=== PATIENT | male | born 1975 | race Caucasian/White ===

== ENCOUNTER 2016-11-15 19:56 | Emergency (ER) | payer SELFPAY ==
[2016-11-15] MEDS ORDERED: NS 1,000 ML IV ONE (20:23)
[2016-11-15 20:30] LABS: % IMMATURE GRANULYOCYTES 0.3 % (0.0-1.1); ABSOLUTE IMMATURE GRANULOCYTES 0.03 10^3/uL (0.00-0.10); ADD DIFF? NO; ADD MORPH? NO; ADD SCAN? NO; ATYPICAL LYMPHOCYTE FLAG 20 (0-99); FRAGMENT RBC FLAG 0 (0-99); HEMATOCRIT 49.4 % (40.0-51.0); HEMOGLOBIN 17.8 g/dL (13.7-17.5); LEFT SHIFT FLG 0 (0-99); LIPEMIA HEMOLYSIS FLAG 90 (0-99); MEAN CELL HEMOGLOBIN 33.1 pg (27.9-34.1); MEAN CELL VOLUME 91.8 fL (81.5-99.8); MEAN PLATELET VOLUME 10.1 fL (8.7-11.7); PLATELET CLUMPS FLAG 0 (0-99); PLATELET COUNT 236 10^3/uL (150-400); RED BLOOD CELL COUNT 5.38 10^6/uL (4.40-6.38)
[2016-11-15] MEDS ORDERED: fentaNYL 100 MCG/2 ML INJ IVP ONE (20:30)
[2016-11-15] MEDS ORDERED: ONDANSETRON 4 MG/2 ML VIAL IVP ONE (20:33)
[2016-11-15 20:34] LABS: COLOR YELLOW; LEUKOCYTE ESTERASE,URINE TRACE (NEGATIVE); NITRITE,URINE NEGATIVE (NEGATIVE)
[2016-11-15 20:44] LABS: MUCUS TRACE /lpf (NONE-1+); RBC,URINE 50-182 /hpf (0-3); WBC,URINE 25-50 /hpf (0-3)
[2016-11-15 20:45] LABS: ANION GAP 11 mEq/L (8-16); CALCIUM 9.1 mg/dL (8.5-10.4); CARBON DIOXIDE 29 mEq/l (22-31); CHLORIDE 100 mEq/L (97-110); CREATININE 1.1 mg/dL (0.7-1.3); GLOMERULAR FILTRATION RATE > 60; GLUCOSE 128 mg/dL (70-100); SODIUM 140 mEq/L (134-144)
[2016-11-15] MEDS ORDERED: KETOROLAC 30 MG/1 ML SDV IVP ONE (20:45)
--- NOTE | 2016-11-15 20:48 | EDPHY ---
H & P Stated Complaint: LLQ abd pain, hematuria Time Seen by Provider: 11/15/16 20:05 HPI/ROS: CHIEF COMPLAINT: Left flank pain HISTORY OF PRESENT ILLNESS: The patient is a 41-year-old man who comes to the emergency department complaining of left flank pain off and on for the last 3 years. He states that he has passed multiple kidney stones in the past and has feels similar. He is not sure if he has passed stones or if he has been working on the same stone for 3 years. He does not have any history of aneurysm or kidney abnormalities. He does have a history of mild aortic stenosis that is not treated. He does not take any medications. He noticed flank pain this evening and intermittently tonight. No fever. He began having hematuria as well. He did take a Keflex he had left over this afternoon to see if that would help. REVIEW OF SYSTEMS: Constitutional: denies: chills, fever, recent illness, recent injury EENTM: denies: blurred vision, double vision, nose congestion Respiratory: denies: cough, shortness of breath Cardiac: denies: chest pain, irregular heart rate, lightheadedness, palpitations Gastrointestinal/Abdominal: See HPI, no diarrhea, no nausea, no vomiting Genitourinary: denies: dysuria, frequency, hematuria, pain Musculoskeletal: denies: joint pain, muscle pain Skin: denies: lesions, rash, jaundice, bruising Neurological: denies: headache, numbness, paresthesia, tingling, dizziness, weakness Hematologic/Lymphatic: denies: blood clots, easy bleeding, easy bruising Immunologic/allergic: denies: HIV/AIDS, transplant EXAM: GENERAL: Well-appearing, well-nourished and in no acute distress. HEAD: Atraumatic, normocephalic. EYES: Pupils equal round and reactive to light, extraocular movements intact, sclera anicteric, conjunctiva are normal. ENT: TMs normal, nares patent, oropharynx clear without exudates. Moist mucous membranes. NECK: Normal range of motion, supple without lymphadenopathy or JVD. LUNGS: Breath sounds clear to auscultation bilaterally and equal. No wheezes rales or rhonchi. HEART: Regular rate and rhythm without murmurs, rubs or gallops. ABDOMEN: Soft, nontender, normoactive bowel sounds. No guarding, no rebound. No masses appreciated. : Negative BACK: No CVA tenderness, no spinal tenderness, step-offs or deformities EXTREMITIES: Normal range of motion, no pitting or edema. No clubbing or cyanosis. NEUROLOGICAL: Cranial nerves II through XII grossly intact. Normal speech, normal gait. 5/5 strength, normal movement in all extremities, normal sensation PSYCH: Normal mood, normal affect. SKIN: Warm, dry, normal turgor, no visible rashes or lesions. Source: Patient Exam Limitations: No limitations - Personal History Current Tetanus/Diphtheria Vaccine: Yes Current Tetanus Diphtheria and Acellular Pertussis (TDAP): Yes Tetanus Vaccine Date: < 10 YEARS - Medical/Surgical History Hx Asthma: No Hx Chronic Respiratory Disease: No Hx Diabetes: No Hx Cardiac Disease: No Hx Renal Disease: No Hx Cirrhosis: No Hx Alcoholism: No Hx HIV/AIDS: No Hx Splenectomy or Spleen Trauma: No Other PMH: AORTIC STENOSIS, DJD, Kidney stones, - Family History Significant Family History: Hypertension - Social History Smoking Status: Current every day smoker Alcohol Use: Sober Drug Use: None Constitutional: Initial Vital Signs Temperature (C) 36.7 C 11/15/16 20:01 Heart Rate 98 11/15/16 20:01 Respiratory Rate 16 11/15/16 20:01 Blood Pressure 127/87 H 11/15/16 20:01 O2 Sat (%) 96 11/15/16 20:01 O2 Delivery Mode Room Air Allergies/Adverse Reactions: No Known Allergies Allergy (Unverified 11/15/16 20:00) Home Medications: Medication Instructions Recorded Cephalexin [Keflex (*)] 500 mg PO QID #28 cap 09/19/15 Hydrocodone/APAP 5/325 [[place] 1 - 2 tab PO Q6H PRN #20 tab 11/15/16 5/325 (*)] Ketorolac Tromethamine [Toradol] 10 mg PO Q6H #16 tab 11/15/16 Tamsulosin HCl [Flomax] 0.4 mg PO DAILY #10 cap 11/15/16 Medical Decision Making ED Course/Re-evaluation: 9:35 p.m. the patient is feeling completely better. He wishes to go home. I will have him follow up with Urology. We discussed indications for returning. Will also give him Flomax here. Differential Diagnosis: Partial list of the Differential diagnosis considered include but were not limited to; kidney stone, urinary tract infection and although unlikely based on the history and physical exam, I also considered hernia, STD, diarrhea, diverticulitis. I discussed these differential diagnoses and the plan with the patient as well as the usual and expected course. The patient understands that the diagnosis is provisional and that in medicine we are not always correct and that further workup is often warranted. Usual and customary warnings were given. All of the patient's questions were answered. The patient was instructed to return to the emergency department should the symptoms at all worsen or return, otherwise to followup with the physician as we discussed. - Data Points Laboratory Results: Laboratory Results 11/15/16 20:19 11/15/16 20:19 11/15/16 11/15/16 20:19 20:09 WBC 9.15 10^3/uL (3.80-9.50) RBC 5.38 10^6/uL (4.40-6.38) Hgb 17.8 H g/dL (13.7-17.5) Hct 49.4 % (40.0-51.0) MCV 91.8 fL (81.5-99.8) MCH 33.1 pg (27.9-34.1) MCHC 36.0 g/dL (32.4-36.7) RDW 13.0 % (11.5-15.2) Plt Count 236 10^3/uL (150-400) MPV 10.1 fL (8.7-11.7) Neut % (Auto) 69.7 % (39.3-74.2) Lymph % (Auto) 18.0 % (15.0-45.0) [facility] % (Auto) 8.2 % (4.5-13.0) Eos % (Auto) 3.3 % (0.6-7.6) Baso % (Auto) 0.5 % (0.3-1.7) Nucleat RBC Rel Count 0.0 % (0.0-0.2) Absolute Neuts (auto) 6.37 10^3/uL (1.70-6.50) Absolute Lymphs (auto) 1.65 10^3/uL (1.00-3.00) Absolute Monos (auto) 0.75 10^3/uL (0.30-0.80) Absolute Eos (auto) 0.30 10^3/uL (0.03-0.40) Absolute Basos (auto) 0.05 10^3/uL (0.02-0.10) Absolute Nucleated RBC 0.00 10^3/uL (0-0.01) Immature Gran % 0.3 % (0.0-1.1) Immature Gran # 0.03 10^3/uL (0.00-0.10) Sodium 140 mEq/L (134-144) Potassium 4.0 mEq/L (3.5-5.2) Chloride 100 mEq/L (97-110) Carbon Dioxide 29 mEq/l (22-31) Anion Gap 11 mEq/L (8-16) BUN 12 mg/dL (7-23) Creatinine 1.1 mg/dL (0.7-1.3) Estimated GFR > 60 Glucose 128 H mg/dL (70-100) Calcium 9.1 mg/dL (8.5-10.4) Urine Color YELLOW Urine Appearance MODERATELY TURBID Urine pH 5.0 (5.0-7.5) Ur Specific Neon 1.025 (1.002-1.030) Urine Protein 2+ H (NEGATIVE) Urine Ketones NEGATIVE (NEGATIVE) Urine Blood 3+ H (NEGATIVE) Urine Nitrate NEGATIVE (NEGATIVE) Urine Bilirubin NEGATIVE (NEGATIVE) Urine Urobilinogen NEGATIVE EU (0.2-1.0) Ur Leukocyte Esterase TRACE H (NEGATIVE) Urine RBC 50-182 H /hpf (0-3) Urine WBC 25-50 H /hpf (0-3) Ur Epithelial Cells TRACE /lpf (NONE-1+) Urine Mucus TRACE /lpf (NONE-1+) Ur Culture Indicated? INDICATED H (NI) Urine Glucose NEGATIVE (NEGATIVE) Medications Given: Discontinued Medications Acetaminophen/Hydrocodone Bitart ([place] 5/325mg Prepack#6) 1 btl TAKEHOME EDNOW ONE Stop: 11/15/16 21:39 Last Admin: 11/15/16 21:56 Dose: 1 btl Fentanyl (Sublimaze) 50 mcg IVP EDNOW ONE Stop: 11/15/16 20:31 Last Admin: 11/15/16 20:42 Dose: 50 mcg Sodium Chloride (Ns) 1,000 mls @ 0 mls/hr IV EDNOW ONE PRN Reason: Wide Open Stop: 11/15/16 20:24 Last Admin: 11/15/16 20:24 Dose: 1,000 mls Ketorolac Tromethamine (Toradol) 30 mg IVP EDNOW ONE Stop: 11/15/16 20:46 Last Admin: 11/15/16 20:51 Dose: 30 mg Ondansetron HCl (Zofran) 4 mg IVP EDNOW ONE Stop: 11/15/16 20:34 Last Admin: 11/15/16 20:42 Dose: 4 mg Tamsulosin HCl (Flomax) 0.4 mg PO EDNOW ONE Stop: 11/15/16 21:39 Last Admin: 11/15/16 21:47 Dose: Not Given Tamsulosin HCl (Flomax) 0.4 mg PO EDNOW ONE Stop: 11/15/16 21:43 Last Admin: 11/15/16 21:56 Dose: 0.4 mg Departure - Departure Disposition: Home, Routine, Self-Care Clinical Impression: Renal colic on left side Condition: Fair Instructions: Hydrocodone/Acetaminophen (By mouth), Kidney Stones (ED) Referrals: [place],. [Primary Care Provider] - As per Instructions Rudi Puckett MD [Medical Doctor] - As per Instructions Prescriptions: Tamsulosin HCl [Flomax] 0.4 mg PO DAILY #10 cap Hydrocodone/APAP 5/325 [[place] 5/325 (*)] 1 - 2 tab PO Q6H PRN #20 tab PRN Reason: Pain, Mild Ketorolac Tromethamine [Toradol] 10 mg PO Q6H #16 tab
[2016-11-15 21:28] VITALS: BP 122/106; PULSE 100; RESP 13; O2SAT 94
[2016-11-15] MEDS ORDERED: HYDROCOD/APAP 5/325 PREPACK#6 BTL TAKEHOME ONE (21:38)
[2016-11-15] MEDS ORDERED: TAMSULOSIN HCL 0.4 MG CAP PO ONE ×2 (21:38→21:42)
[2016-11-15 21:58] VITALS: TEMP 97.7
== END 2016-11-15 21:56 | disposition home or self-care (01) ==
DX: N23 Unspecified renal colic (principal); F17.200 Nicotine dependence, unspecified, uncomplicated
CPT/HCPCS: 96374; J1885; J2405; J3010

== ENCOUNTER 2016-11-27 04:37 | Emergency (ER) | payer SELFPAY ==
[2016-11-27 04:49] VITALS: BP 119/88; PULSE 97; RESP 18; TEMP 97.5; O2SAT 98
[2016-11-27] MEDS ORDERED: PROPARACAINE 0.5% 15 ML OPHT DROP ONE (04:51)
[2016-11-27] MEDS ORDERED: PROPARACAINE 0.5% 15 ML OPHT DROP OP ONE (04:56)
--- NOTE | 2016-11-27 05:15 | EDPHY ---
H & P Stated Complaint: RIGHT EYE DISCHARGE NAD ITCHY HPI/ROS: HPI CHIEF COMPLAINT: Left eye drainage, itchiness HISTORY OF PRESENT ILLNESS: This patient very pleasant 41-year-old male, denies any significant medical history except for kidney stones and tobacco use , presents to the emergency room with left eye and right eye discomfort. Patient tells me that around 10:00 p.m. last night he developed some discomfort his left eye he thought maybe got something in it however he noticed throughout the night it has been draining with yellow discharge especially pulling at the medial canthus. He denies fever he denies pain with extraocular movements. He tells me that he looked in the mirror in his conjunctiva looks injected he thinks he may have pinkeye. Patient also tells me that he has right eye started getting a little bit red he is concerned may have spread to his right eye. He does not wear contacts. Past Medical History: Kidney stones Past Surgical History: No significant surgical history Social History: Denies use of drugs alcohol, drugs or tobacco Family History: noncontributory ROS REVIEW OF SYSTEMS: A comprehensive 10 point review of systems is otherwise negative aside from elements mentioned in the history of present illness. Exam Constitutional triage nursing summary reviewed, vital signs reviewed, awake/ alert. Eyes bilateral conjunctiva is injected red worse on the left eye than the right. Right Eye: Conjunctival injection otherwise unremarkable no anterior chamber inflammation, no flare, extra movements intact, no evidence of corneal abrasion. Left eye: There is pooling of yellow drainage and discharge in the medial canthus, the conjunctiva is injected, extra movements intact, no corneal abrasion seen on uptake of fluorescein. Anterior chambers normal. Posterior exam without dilatation normal. HENT normal inspection, atraumatic, moist mucus membranes, no epistaxis, neck supple/ no meningismus, no raccoon eyes. Respiratory clear to auscultation bilaterally, normal breath sounds, no respiratory distress, no wheezing. Cardiovascular rate normal, regular rhythm, no murmur, no edema, distal pulses normal. Gastrointestinal soft, non-tender, no rebound, no guarding, normal bowel sounds, no distension, no pulsatile mass. Genitourinary no CVA tenderness. Musculoskeletal no midline vertebral tenderness, full range of motion, no calf swelling, no tenderness of extremities, no meningismus, good pulses, neurovascularly intact. Skin pink, warm, & dry, no rash, skin atraumatic. Neurologic awake, alert and oriented x 3, AAOx3, moves all 4 extremities equally, motor intact, sensory intact, CN II-XII intact, normal cerebellar, normal vision, normal speech. Psychiatric normal mood/affect. Heme/Lymph/Immune no lymphadenopathy. Differential Diagnosis: Includes but is not limited to in a particular order viral conjunctivitis, bacterial conjunctivitis, corneal abrasion, Foreign body Medical Decision Making: this patient's eye exam does not indicate he has a corneal abrasion or foreign body on either eye. He appears to have bilateral conjunctival injection, worse on the left side than right with drainage and crusting yellow discharge. Will place patient antibiotics understands to take ibuprofen for pain, use cool compresses. Needs to follow up with Ophthalmology. He understands follow-up Ophthalmology next 24-48 hours. Source: Patient - Personal History Current Tetanus/Diphtheria Vaccine: Yes Current Tetanus Diphtheria and Acellular Pertussis (TDAP): Yes Tetanus Vaccine Date: < 10 YEARS - Medical/Surgical History Hx Asthma: No Hx Chronic Respiratory Disease: No Hx Diabetes: No Hx Cardiac Disease: No Hx Renal Disease: No Hx Cirrhosis: No Hx Alcoholism: No Hx HIV/AIDS: No Hx Splenectomy or Spleen Trauma: No Other PMH: AORTIC STENOSIS, DJD, Kidney stones, - Social History Smoking Status: Current every day smoker Constitutional: Initial Vital Signs Temperature (C) 36.4 C 11/27/16 04:47 Heart Rate 97 11/27/16 04:47 Respiratory Rate 18 11/27/16 04:47 Blood Pressure 119/88 H 11/27/16 04:47 O2 Sat (%) 98 11/27/16 04:47 O2 Delivery Mode Room Air Allergies/Adverse Reactions: No Known Allergies Allergy (Unverified 11/27/16 04:49) Home Medications: Medication Instructions Recorded Ibuprofen [Motrin (*)] 800 mg PO Q6-8PRN #14 tab 11/27/16 Ofloxacin 0.3% [Ocuflox 0.3%] 2 drops OP QID #1 opht.btl 11/27/16 Medical Decision Making - Data Points Medications Given: Discontinued Medications Proparacaine HCl (Alcaine 0.5%) 2 drops OP EDNOW ONE Stop: 11/27/16 04:57 Last Admin: 11/27/16 04:57 Dose: 2 drops Departure - Departure Disposition: Home, Routine, Self-Care Clinical Impression: Conjunctivitis Qualifiers: Conjunctivitis type: acute Acute conjunctivitis type: bacterial Laterality: bilateral Qualifier Code: (H10.33) Unspecified acute conjunctivitis, bilateral Condition: Good Instructions: Conjunctivitis (ED) Additional Instructions: 1. Please follow up with Ophthalmology. 2. Return emergency room if he has any worsening symptoms questions or concerns. 3. Please take antibiotics as prescribed. 4. use cool compresses for your eye. 5. Take ibuprofen for pain. Referrals: [place],. [Primary Care Provider] - As per Instructions Nahun Vasquez MD [Medical Doctor] - As per Instructions Prescriptions: Ibuprofen [Motrin (*)] 800 mg PO Q6-8PRN #14 tab Ofloxacin 0.3% [Ocuflox 0.3%] 2 drops OP QID #1 opht.btl
== END 2016-11-27 05:41 | disposition home or self-care (01) ==
DX: H10.33 Unspecified acute conjunctivitis, bilateral (principal); F17.200 Nicotine dependence, unspecified, uncomplicated

== ENCOUNTER 2017-02-09 07:37 | Emergency (ER) | payer MEDICAID ==
[2017-02-09 07:43] VITALS: RESP 22
[2017-02-09] MEDS ORDERED: ONDANSETRON 4 MG/2 ML VIAL IVP ONE (08:08)
[2017-02-09] MEDS ORDERED: HYDROmorphONE/DILAUDID 1 MG/ML SYR IVP ONE (08:08)
[2017-02-09] MEDS ORDERED: NS 1,000 ML IV ONE (08:08)
[2017-02-09] MEDS ORDERED: HYDROmorphONE/DILAUDID 1 MG/ML SYR ONE (08:08)
--- NOTE | 2017-02-09 08:10 | EDPHY ---
H & P Stated Complaint: rlq abd pain Time Seen by Provider: 02/09/17 08:02 HPI/ROS: CHIEF COMPLAINT: Right lower quadrant pain HISTORY OF PRESENT ILLNESS: The patient is a 41-year-old man who comes to the emergency department complaining of severe right lower quadrant pain. He has a history of mild aortic stenosis that has not been treated, as well as kidney stones. He states that this does not feel similar to previous kidney stones because the pain is worse. His pain began suddenly at 4:00 a.m. this morning. He has a difficult time finding a comfortable position. He is not febrile. He has not been vomiting. No diarrhea. He has not been able to urinate. I saw him in November with similar symptoms. At that time he did not wish to have a CT scan. REVIEW OF SYSTEMS: Constitutional: denies: chills, fever, recent illness, recent injury EENTM: denies: blurred vision, double vision, nose congestion Respiratory: denies: cough, shortness of breath Cardiac: denies: chest pain, irregular heart rate, lightheadedness, palpitations Gastrointestinal/Abdominal: See HPI Genitourinary: See HPI Musculoskeletal: denies: joint pain, muscle pain Skin: denies: lesions, rash, jaundice, bruising Neurological: denies: headache, numbness, paresthesia, tingling, dizziness, weakness Hematologic/Lymphatic: denies: blood clots, easy bleeding, easy bruising Immunologic/allergic: denies: HIV/AIDS, transplant EXAM: GENERAL: Moderate distress, writhing in bed, moaning HEAD: Atraumatic, normocephalic. EYES: Pupils equal round and reactive to light, extraocular movements intact, sclera anicteric, conjunctiva are normal. ENT: TMs normal, nares patent, oropharynx clear without exudates. Moist mucous membranes. NECK: Normal range of motion, supple without lymphadenopathy or JVD. LUNGS: Breath sounds clear to auscultation bilaterally and equal. No wheezes rales or rhonchi. HEART: Regular rate and rhythm without murmurs, rubs or gallops. ABDOMEN: Soft, nontender, normoactive bowel sounds. No guarding, no rebound. No masses appreciated. BACK: No CVA tenderness, no spinal tenderness, step-offs or deformities EXTREMITIES: Normal range of motion, no pitting or edema. No clubbing or cyanosis. NEUROLOGICAL: Cranial nerves II through XII grossly intact. Normal speech, normal gait. 5/5 strength, normal movement in all extremities, normal sensation PSYCH: Normal mood, normal affect. SKIN: Warm, dry, normal turgor, no visible rashes or lesions. Source: Patient Exam Limitations: No limitations - Personal History Current Tetanus/Diphtheria Vaccine: Yes Tetanus Vaccine Date: < 10 YEARS - Medical/Surgical History Hx Asthma: No Hx Chronic Respiratory Disease: No Hx Diabetes: No Hx Cardiac Disease: No Hx Renal Disease: No Hx Cirrhosis: No Hx Alcoholism: No Hx HIV/AIDS: No Hx Splenectomy or Spleen Trauma: No Other PMH: AORTIC STENOSIS, DJD, Kidney stones, - Family History Significant Family History: No pertinent family hx - Social History Smoking Status: Current every day smoker Alcohol Use: Sober Drug Use: None Constitutional: Initial Vital Signs Temperature (C) 36.9 C 02/09/17 07:39 Heart Rate 96 02/09/17 07:39 Respiratory Rate 22 H 02/09/17 07:39 Blood Pressure 120/83 H 02/09/17 07:39 O2 Sat (%) 94 02/09/17 07:39 O2 Delivery Mode Room Air O2 (L/minute) 2 Allergies/Adverse Reactions: No Known Allergies Allergy (Verified 02/09/17 07:39) Home Medications: Medication Instructions Recorded Hydrocodone/APAP 5/325 [[place] 1 - 2 tab PO Q4H PRN #10 tab 02/09/17 5/325] Ketorolac Tromethamine [Toradol] 10 mg PO Q6H #16 tab 02/09/17 Ondansetron Odt [Zofran Odt 4 mg 4 mg PO Q4 PRN #20 tab 02/09/17 (RX)] Medical Decision Making - Diagnostics Imaging: Imaging Impressions Abdomen/Pelvis CT 02/09/17 09:16 Impression: 1. Right-sided obstructive uropathy secondary to a 9 x 13 x 9 mm right renal pelvic stone. 2. Punctate bilateral nephrolithiasis. 3. Constipation. Findings were discussed with MALIK BURDICK MD at 10:13 am, on 02/09/2017. Attention: This CT examination is specifically designed to evaluate patients who are clinically suspected of having acute obstructive uropathy. This examination does not use radiographic contrast, and as such, provides only a limited evaluation of the abdomen, pelvis, and retroperitoneum. If there is further clinical suspicion for pathological conditions other than obstructive uropathy, a complete CT evaluation of the abdomen and pelvis utilizing intravenous, oral, and rectal contrast should be considered. Results: CT scan of the abdomen and pelvis was obtained. The results of the study are large 9 x 13 mm stone in the right renal pelvis with possible ball valve affect. Minimal to mild obstruction. Appendix normal appearing, mild constipation. The study was read by Dr. Jimbo Poe. I viewed the images myself on the PACS system. ED Course/Re-evaluation: 10:35 p.m. we discussed the CT results. The patient is reassured. He is currently pain free. I will refer him to urology for lithotripsy. I will give him prescription for pain and nausea medication. He is happy with this plan and declines further workup or testing. Differential Diagnosis: Partial list of the Differential diagnosis considered include but were not limited to; kidney stone, appendicitis, obstruction, constipation, hernia and although unlikely based on the history and physical exam, I also considered urinary tract infection, acute coronary disease. I discussed these differential diagnoses and the plan with the patient as well as the usual and expected course. The patient understands that the diagnosis is provisional and that in medicine we are not always correct and that further workup is often warranted. Usual and customary warnings were given. All of the patient's questions were answered. The patient was instructed to return to the emergency department should the symptoms at all worsen or return, otherwise to followup with the physician as we discussed. - Data Points Laboratory Results: Laboratory Results 02/09/17 07:59 02/09/17 07:59 02/09/17 02/09/17 07:59 07:59 WBC 9.79 10^3/uL H 10^3/uL (3.80-9.50) RBC 5.53 10^6/uL 10^6/uL (4.40-6.38) Hgb 17.5 g/dL g/dL (13.7-17.5) Hct 49.5 % % (40.0-51.0) MCV 89.5 fL fL (81.5-99.8) MCH 31.6 pg pg (27.9-34.1) MCHC 35.4 g/dL g/dL (32.4-36.7) RDW 13.0 % % (11.5-15.2) Plt Count 276 10^3/uL 10^3/uL (150-400) MPV 10.5 fL fL (8.7-11.7) Neut % (Auto) 60.0 % % (39.3-74.2) Lymph % (Auto) 28.3 % % (15.0-45.0) [facility] % (Auto) 7.4 % % (4.5-13.0) Eos % (Auto) 3.4 % % (0.6-7.6) Baso % (Auto) 0.7 % % (0.3-1.7) Nucleat RBC Rel Count 0.0 % % (0.0-0.2) Absolute Neuts (auto) 5.88 10^3/uL 10^3/uL (1.70-6.50) Absolute Lymphs (auto) 2.77 10^3/uL 10^3/uL (1.00-3.00) Absolute Monos (auto) 0.72 10^3/uL 10^3/uL (0.30-0.80) Absolute Eos (auto) 0.33 10^3/uL 10^3/uL (0.03-0.40) Absolute Basos (auto) 0.07 10^3/uL 10^3/uL (0.02-0.10) Absolute Nucleated RBC 0.00 10^3/uL 10^3/uL (0-0.01) Immature Gran % 0.2 % % (0.0-1.1) Immature Gran # 0.02 10^3/uL 10^3/uL (0.00-0.10) Sodium 140 mEq/L mEq/L (134-144) Potassium 4.1 mEq/L mEq/L (3.5-5.2) Chloride 104 mEq/L mEq/L (97-110) Carbon Dioxide 25 mEq/l mEq/l (22-31) Anion Gap 11 mEq/L mEq/L (8-16) BUN 13 mg/dL mg/dL (7-23) Creatinine 1.1 mg/dL mg/dL (0.7-1.3) Estimated GFR > 60 Glucose 89 mg/dL mg/dL (70-100) Calcium 9.8 mg/dL mg/dL (8.5-10.4) Total Bilirubin 1.1 mg/dL mg/dL (0.1-1.4) Conjugated Bilirubin 0.5 mg/dL mg/dL (0.0-0.5) Unconjugated Bilirubin 0.6 mg/dL mg/dL (0.0-1.1) AST 31 IU/L IU/L (17-59) ALT 35 IU/L IU/L (21-72) Alkaline Phosphatase 104 IU/L IU/L (38-126) Total Protein 7.9 g/dL g/dL (6.3-8.2) Albumin 4.7 g/dL g/dL (3.5-5.0) Lipase 119.0 IU/L IU/L (23-300) Medications Given: Discontinued Medications Hydromorphone HCl (Dilaudid) 1 mg IVP EDNOW ONE Stop: 02/09/17 08:09 Last Admin: 02/09/17 08:16 Dose: 1 mg Sodium Chloride (Ns) 1,000 mls @ 0 mls/hr IV ONCE ONE PRN Reason: Wide Open Stop: 02/09/17 08:09 Last Admin: 02/09/17 08:16 Dose: 1,000 mls Ketorolac Tromethamine (Toradol) 30 mg IVP EDNOW ONE Stop: 02/09/17 08:42 Last Admin: 02/09/17 09:16 Dose: 30 mg Ondansetron HCl (Zofran) 4 mg IVP EDNOW ONE Stop: 02/09/17 08:09 Last Admin: 02/09/17 08:18 Dose: 4 mg Departure - Departure Disposition: Home, Routine, Self-Care Clinical Impression: Kidney stone on left side Condition: Fair Instructions: Kidney Stones (ED) Referrals: Rebel Chappell MD [Medical Doctor] - As per Instructions Stand Alone Forms: Work Excuse Prescriptions: Hydrocodone/APAP 5/325 [[place] 5/325] 1 - 2 tab PO Q4H PRN #10 tab PRN Reason: Pain, Moderate Ketorolac Tromethamine [Toradol] 10 mg PO Q6H #16 tab Ondansetron Odt [Zofran Odt 4 mg (RX)] 4 mg PO Q4 PRN #20 tab PRN Reason: Nausea & Vomiting
[2017-02-09 08:12] LABS: % IMMATURE GRANULYOCYTES 0.2 % (0.0-1.1); ABSOLUTE IMMATURE GRANULOCYTES 0.02 10^3/uL (0.00-0.10); ADD DIFF? NO; ADD MORPH? NO; ADD SCAN? NO; ATYPICAL LYMPHOCYTE FLAG 20 (0-99); FRAGMENT RBC FLAG 0 (0-99); HEMATOCRIT 49.5 % (40.0-51.0); HEMOGLOBIN 17.5 g/dL (13.7-17.5); LEFT SHIFT FLG 0 (0-99); LIPEMIA HEMOLYSIS FLAG 90 (0-99); MEAN CELL HEMOGLOBIN 31.6 pg (27.9-34.1); MEAN CELL HEMOGLOBIN CONCENTR. 35.4 g/dL (32.4-36.7); MEAN CELL VOLUME 89.5 fL (81.5-99.8); MEAN PLATELET VOLUME 10.5 fL (8.7-11.7); PLATELET CLUMPS FLAG 10 (0-99); PLATELET COUNT 276 10^3/uL (150-400); RED BLOOD CELL COUNT 5.53 10^6/uL (4.40-6.38)
[2017-02-09 08:38] LABS: ALANINE AMINOTRANSFERASE 35 IU/L (21-72); ALBUMIN 4.7 g/dL (3.5-5.0); ALKALINE PHOSPHATASE 104 IU/L (38-126); ANION GAP 11 mEq/L (8-16); ASPARTATE AMINOTRANSFERASE 31 IU/L (17-59); BILIRUBIN,TOTAL 1.1 mg/dL (0.1-1.4); BILIRUBIN-CONJUGATED 0.5 mg/dL (0.0-0.5); BILIRUBIN-UNCONJUGATED 0.6 mg/dL (0.0-1.1); CALCIUM 9.8 mg/dL (8.5-10.4); CARBON DIOXIDE 25 mEq/l (22-31); CHLORIDE 104 mEq/L (97-110); CREATININE 1.1 mg/dL (0.7-1.3); GLOMERULAR FILTRATION RATE > 60; GLUCOSE 89 mg/dL (70-100); POTASSIUM 4.1 mEq/L (3.5-5.2); SODIUM 140 mEq/L (134-144); TOTAL PROTEIN 7.9 g/dL (6.3-8.2)
[2017-02-09] MEDS ORDERED: KETOROLAC 30 MG/1 ML SDV IVP ONE (08:41)
[2017-02-09 11:18] VITALS: BP 130/87; PULSE 98; TEMP 98.1; O2SAT 100
== END 2017-02-09 11:18 | disposition home or self-care (01) ==
DX: N20.0 Calculus of kidney (principal); F17.200 Nicotine dependence, unspecified, uncomplicated
CPT/HCPCS: 96374; J1170; J1885; J2405

== ENCOUNTER → 2017-02-20 | Outpatient (CLI) | payer MEDICAID | LOC: FIMAGING 18:35 | PROVIDERS: ATTEND Urology | DX: N20.0 Calculus of kidney (principal) ==

== ENCOUNTER 2017-02-22 11:32 | Emergency (ER) | payer MEDICAID ==
--- NOTE | 2017-02-22 11:59 | EDPHY ---
H & P Time Seen by Provider: 02/22/17 11:38 HPI/ROS: CHIEF COMPLAINT: Right lower quadrant abdominal pain HISTORY OF PRESENT ILLNESS: 41-year-old male presents to the emergency department with right lower quadrant abdominal pain. The patient was diagnosed with a large 9 x 13 x 9 mm stone in the right renal pelvis last week. He has seen Dr. Rebel Chappell, urologist, and is planning on having likely lithotripsy in treatment. The patient's saw Dr. Chappell and has had his laboratory studies and his outpatient x-ray and presents to the emergency department now with persisting pain. He denies urinary symptoms. He denies blood in his urine. No fevers or chills. He has persisting right lower quadrant abdominal pain. Denies neck pain. Denies chest pain or difficulty breathing. Denies any reported trauma. REVIEW OF SYSTEMS: Constitutional: No fever, no chills. Eyes: No double or blurry vision. ENT: No sore throat. Respiratory: No cough, no shortness of breath. Cardiac: No chest pain. Gastrointestinal: Abdominal pain as above. No vomiting or diarrhea Genitourinary: No dysuria. Musculoskeletal: No neck or back pain. Skin: No rashes. Neurological: No headache. Past Medical/Surgical History: Kidney stone Social History: Single and lives in [place] Smoking Status: Current every day smoker Physical Exam: General Appearance: Alert, no distress. Afebrile. Eyes: Pupils equal and round. Extraocular motions are all intact. ENT: Mouth: Mucous membranes moist. Respiratory: No wheezing, rhonchi, or rales, lungs are clear to auscultation. Cardiovascular: Regular rate and rhythm. Gastrointestinal: Abdomen is soft and nontender. No masses, rebound or guarding noted. No CVA tenderness bilaterally. Neurological: Alert and oriented x 3, cranial nerves II through XII grossly intact Skin: Warm and dry, no rashes. Musculoskeletal: Nontender to palpate along the cervical, thoracic or lumbar spine. Neck is supple. Extremities: Full range of motion and no peripheral edema. Psychiatric: Patient is oriented X 3, there is no agitation. Constitutional: Initial Vital Signs Temperature (C) 36.4 C 02/22/17 11:35 Heart Rate 94 02/22/17 11:35 Respiratory Rate 18 02/22/17 11:35 Blood Pressure 119/79 02/22/17 11:35 O2 Sat (%) 96 02/22/17 11:35 O2 Delivery Mode Room Air Allergies/Adverse Reactions: No Known Allergies Allergy (Verified 02/22/17 11:34) Home Medications: Medication Instructions Recorded Hydrocodone/APAP 5/325 [[place] 1 - 2 tab PO Q4H PRN #10 tab 02/09/17 5/325] Ketorolac Tromethamine [Toradol] 10 mg PO Q6H #16 tab 02/09/17 Ondansetron Odt [Zofran Odt 4 mg 4 mg PO Q4 PRN #20 tab 02/09/17 (RX)] Cephalexin [Keflex] 500 mg PO QID #28 cap 02/22/17 Hydrocodone/APAP 5/325 [[place] 1 each PO Q4-6PRN PRN #15 tab 02/22/17 5/325 (*)] Tamsulosin HCl [Flomax] 0.4 mg PO DAILY #10 cap 02/22/17 Medical Decision Making ED Course/Re-evaluation: 41-year-old male presents to the emergency department with persisting right lower quadrant abdominal pain. The patient has a known 9 x 13 x 9 mm right renal pelvis stone. The patient had KUB x-ray done 2 days ago which shows the stone in the same place. He has a normal creatinine 1.1. I spoke with his urologist, Dr. Rebel Chappell who he saw last week. Dr. Chappell did not recommend additional Toradol since the patient ran out yesterday. He recommended starting the patient on Flomax, and hydrocodone. He will see him for lithotripsy this week. The patient is supposed to call to arrange for this appointment. The patient had a large amount of red blood cells which is expected given his large kidney stone, however he did have 15-25 white blood cells and trace bacteria. Urine cultures pending. The patient was started on Keflex prophylactically and will call for the results of the urine culture in 48 hours. Patient was instructed to return if he develops fever, vomiting, or if he felt worse in any way. He was comfortable with this plan. The patient did not want to be admitted to the hospital. He was requesting discharge home. Differential Diagnosis: Including but not limited to kidney stone, pyelonephritis, sepsis, urinary retention - Data Points Laboratory Results: Laboratory Results 02/22/17 11:45 02/22/17 11:45 02/22/17 02/22/17 02/22/17 12:15 11:45 11:45 WBC 8.35 10^3/uL 10^3/uL (3.80-9.50) RBC 5.56 10^6/uL 10^6/uL (4.40-6.38) Hgb 17.7 g/dL H g/dL (13.7-17.5) Hct 52.0 % H % (40.0-51.0) MCV 93.5 fL fL (81.5-99.8) MCH 31.8 pg pg (27.9-34.1) MCHC 34.0 g/dL g/dL (32.4-36.7) RDW 13.3 % % (11.5-15.2) Plt Count 239 10^3/uL 10^3/uL (150-400) MPV 10.8 fL fL (8.7-11.7) Neut % (Auto) 65.5 % % (39.3-74.2) Lymph % (Auto) 23.1 % % (15.0-45.0) [place] % (Auto) 6.2 % % (4.5-13.0) Eos % (Auto) 4.1 % % (0.6-7.6) Baso % (Auto) 0.7 % % (0.3-1.7) Nucleat RBC Rel Count 0.0 % % (0.0-0.2) Absolute Neuts (auto) 5.47 10^3/uL 10^3/uL (1.70-6.50) Absolute Lymphs (auto) 1.93 10^3/uL 10^3/uL (1.00-3.00) Absolute Monos (auto) 0.52 10^3/uL 10^3/uL (0.30-0.80) Absolute Eos (auto) 0.34 10^3/uL 10^3/uL (0.03-0.40) Absolute Basos (auto) 0.06 10^3/uL 10^3/uL (0.02-0.10) Absolute Nucleated RBC 0.00 10^3/uL 10^3/uL (0-0.01) Immature Gran % 0.4 % % (0.0-1.1) Immature Gran # 0.03 10^3/uL 10^3/uL (0.00-0.10) Sodium 142 mEq/L mEq/L (134-144) Potassium 4.5 mEq/L mEq/L (3.5-5.2) Chloride 106 mEq/L mEq/L (97-110) Carbon Dioxide 24 mEq/l mEq/l (22-31) Anion Gap 12 mEq/L mEq/L (8-16) BUN 16 mg/dL mg/dL (7-23) Creatinine 1.1 mg/dL mg/dL (0.7-1.3) Estimated GFR > 60 Glucose 99 mg/dL mg/dL (70-100) Calcium 9.9 mg/dL mg/dL (8.5-10.4) Urine Color YELLOW Urine Appearance HAZY Urine pH 6.0 (5.0-7.5) Ur Specific [place] 1.016 (1.002-1.030) Urine Protein 1+ H (NEGATIVE) Urine Ketones NEGATIVE (NEGATIVE) Urine Blood 3+ H (NEGATIVE) Urine Nitrate NEGATIVE (NEGATIVE) Urine Bilirubin NEGATIVE (NEGATIVE) Urine Urobilinogen NEGATIVE EU EU (0.2-1.0) Ur Leukocyte Esterase 1+ H (NEGATIVE) Urine RBC 50-182 /hpf H /hpf (0-3) Urine WBC 25-50 /hpf H /hpf (0-3) Ur Epithelial Cells TRACE /lpf /lpf (NONE-1+) Urine Bacteria TRACE /hpf H /hpf (NONE SEEN) Urine Mucus 1+ /lpf /lpf (NONE-1+) Urine Sperm PRESENT /hpf /hpf (NONE SEEN) Urine Glucose NEGATIVE (NEGATIVE) Departure - Departure Disposition: Home, Routine, Self-Care Clinical Impression: Kidney stone on right side Condition: Good Instructions: Kidney Stones (ED) Additional Instructions: Call Dr. Rebel Chappell's office to let them know your seen in the emergency room and you are to be scheduled for lithotripsy. He does not want to to continued Toradol. You should be taking Flomax 0.4 mg orally daily. He may also use Vicodin as needed for severe pain. Drink plenty of fluids. Return to the emergency department if you developed difficulty urinating, fever, or if you feel worse in any way. Dr. Chappell would like you to take Flomax daily. Keflex 500 mg 4 times daily for 1 week. Call for the results of your urine culture in 48 hours. Referrals: Rebel Chappell MD [Medical Doctor] - 1-2 days without fail (Urologist ) Stand Alone Forms: Work Excuse Prescriptions: Cephalexin [Keflex] 500 mg PO QID #28 cap Hydrocodone/APAP 5/325 [[place] 5/325 (*)] 1 each PO Q4-6PRN PRN #15 tab PRN Reason: Pain, Severe Tamsulosin HCl [Flomax] 0.4 mg PO DAILY #10 cap
[2017-02-22 12:03] LABS: % IMMATURE GRANULYOCYTES 0.4 % (0.0-1.1); ABSOLUTE IMMATURE GRANULOCYTES 0.03 10^3/uL (0.00-0.10); ADD DIFF? NO; ADD MORPH? NO; ADD SCAN? NO; ATYPICAL LYMPHOCYTE FLAG 10 (0-99); FRAGMENT RBC FLAG 0 (0-99); HEMOGLOBIN 17.7 g/dL (13.7-17.5); LEFT SHIFT FLG 0 (0-99); LIPEMIA HEMOLYSIS FLAG 90 (0-99); MEAN CELL HEMOGLOBIN 31.8 pg (27.9-34.1); MEAN CELL VOLUME 93.5 fL (81.5-99.8); MEAN PLATELET VOLUME 10.8 fL (8.7-11.7); PLATELET CLUMPS FLAG 0 (0-99); PLATELET COUNT 239 10^3/uL (150-400); RED BLOOD CELL COUNT 5.56 10^6/uL (4.40-6.38); RED CELL DISTRIBUTION WIDTH 13.3 % (11.5-15.2)
[2017-02-22 12:24] LABS: COLOR YELLOW; LEUKOCYTE ESTERASE,URINE 1+ (NEGATIVE); NITRITE,URINE NEGATIVE (NEGATIVE)
[2017-02-22 12:33] LABS: ANION GAP 12 mEq/L (8-16); CALCIUM 9.9 mg/dL (8.5-10.4); CARBON DIOXIDE 24 mEq/l (22-31); CHLORIDE 106 mEq/L (97-110); CREATININE 1.1 mg/dL (0.7-1.3); GLOMERULAR FILTRATION RATE > 60; GLUCOSE 99 mg/dL (70-100); POTASSIUM 4.5 mEq/L (3.5-5.2); SODIUM 142 mEq/L (134-144)
[2017-02-22 12:59] LABS: BACTERIA TRACE /hpf (NONE SEEN); MUCUS 1+ /lpf (NONE-1+); RBC,URINE 50-182 /hpf (0-3); WBC,URINE 25-50 /hpf (0-3)
[2017-02-22 13:48] VITALS: BP 123/87; PULSE 84; RESP 16; TEMP 97.9; O2SAT 95
== END 2017-02-22 13:50 | disposition home or self-care (01) ==
DX: N20.0 Calculus of kidney (principal); F17.200 Nicotine dependence, unspecified, uncomplicated

== ENCOUNTER 2017-02-28 12:46 | Emergency (ER) | payer MEDICAID ==
[2017-02-28 12:55] VITALS: O2SAT 96
[2017-02-28] MEDS ORDERED: NS 1,000 ML IV ONE (13:27)
[2017-02-28] MEDS ORDERED: KETOROLAC 30 MG/1 ML SDV IVP ONE (13:27)
[2017-02-28 13:32] LABS: % IMMATURE GRANULYOCYTES 0.2 % (0.0-1.1); ABSOLUTE IMMATURE GRANULOCYTES 0.02 10^3/uL (0.00-0.10); ADD DIFF? NO; ADD MORPH? NO; ADD SCAN? NO; ATYPICAL LYMPHOCYTE FLAG 20 (0-99); FRAGMENT RBC FLAG 0 (0-99); HEMATOCRIT 46.8 % (40.0-51.0); HEMOGLOBIN 16.8 g/dL (13.7-17.5); LEFT SHIFT FLG 0 (0-99); LIPEMIA HEMOLYSIS FLAG 90 (0-99); MEAN CELL HEMOGLOBIN 32.1 pg (27.9-34.1); MEAN CELL HEMOGLOBIN CONCENTR. 35.9 g/dL (32.4-36.7); MEAN CELL VOLUME 89.3 fL (81.5-99.8); MEAN PLATELET VOLUME 10.8 fL (8.7-11.7); PLATELET CLUMPS FLAG 0 (0-99); PLATELET COUNT 243 10^3/uL (150-400); RED BLOOD CELL COUNT 5.24 10^6/uL (4.40-6.38); RED CELL DISTRIBUTION WIDTH 12.6 % (11.5-15.2)
--- NOTE | 2017-02-28 13:43 | EDPHY ---
H & P Time Seen by Provider: 02/28/17 13:12 HPI/ROS: CHIEF COMPLAINT: "I have a kidney stone" HISTORY OF PRESENT ILLNESS: Patient is a 41-year-old male who presents emergency department reporting unknown 9 mm kidney stone on the right. Patient states this is his 3rd or 4th visit to the emergency department for the same condition. The patient follow up with Dr. Chappell in his office. He was referred to [place] to have the stone removed. The patient states he has been getting the "run around" from the care provider in [place]. Patient states his symptoms started 2 weeks ago. He has right mid and lower abdominal pain radiating to his right flank. Pain also radiates to his right groin. He has no dysuria or frequency. No notable hematuria. Patient has mild nausea with no vomiting. No shortness of breath. 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 His last use of meth was this morning. REVIEW OF SYSTEMS: My complete review of systems is negative except as mentioned in the HPI. Past Medical/Surgical History: Includes crystal meth use, kidney stone Smoking Status: Current every day smoker Physical Exam: Vitals noted GENERAL: Mild acute distress, alert. HEENT: Eyes normal to inspection, normal pharynx, no signs of dehydration. NECK: No thyromegaly, no lymphadenopathy, supple. RESPIRATORY: Clear to auscultation bilaterally, no rales, rhonchi or wheezing. CVS: Regular rate and rhythm, no rubs, murmurs, or gallops. ABDOMEN: Soft, mild right mid tenderness to palpation with no rebound or guarding, nondistended, no organomegaly. BACK: Normal to inspection, no CVA tenderness. SKIN: Normal color, no rash, warm, dry. No pallor. EXTREMITIES: No pedal edema, no calf tenderness, no Homans sign or cords, no joint swelling. NEURO/PSYCH: Alert and oriented, normal mood and affect, normal motor sensory exam. Constitutional: Initial Vital Signs Temperature (C) 36.6 C 02/28/17 12:51 Heart Rate 79 02/28/17 12:51 Respiratory Rate 24 H 02/28/17 12:51 Blood Pressure 128/87 H 02/28/17 12:51 O2 Sat (%) 96 02/28/17 12:51 O2 Delivery Mode Room Air Allergies/Adverse Reactions: No Known Allergies Allergy (Verified 02/28/17 12:51) Home Medications: Medication Instructions Recorded Hydrocodone/APAP 5/325 [[place] 1 - 2 tab PO Q4H PRN #10 tab 02/09/17 5/325] Ketorolac Tromethamine [Toradol] 10 mg PO Q6H #16 tab 02/09/17 Ondansetron Odt [Zofran Odt 4 mg 4 mg PO Q4 PRN #20 tab 02/09/17 (RX)] Cephalexin [Keflex] 500 mg PO QID #28 cap 02/22/17 Hydrocodone/APAP 5/325 [[place] 1 each PO Q4-6PRN PRN #15 tab 02/22/17 5/325 (*)] Tamsulosin HCl [Flomax] 0.4 mg PO DAILY #10 cap 02/22/17 Ibuprofen 600 mg PO TID #12 tablet 02/28/17 Tamsulosin HCl [Flomax] 0.4 mg PO DAILY #4 cap 02/28/17 oxyCODONE/APAP 5/325 [Percocet 1 - 2 tab PO Q4PRN PRN #11 tab 02/28/17 5/325 (*)] Medical Decision Making ED Course/Re-evaluation: In the emergency department I discussed possible etiologies with the patient. I answered all his questions. IV was placed. Laboratory studies were obtained. Patient was given Toradol 30 mg IV. His creatinine i-STAT was 1.1. I reviewed the patient's previous medical record. I reviewed his ED visits. I reviewed the patient's CT imaging. He has a 9 x 13 x 9 right renal pelvic stone. Reviewed the patient's laboratory studies. His creatinine is normal. His white count is normal. I discussed case with Dr. Lazcano from Urology. He states the patient should be discharged from the ER. He will arrange close follow-up for stone removal. Patient's UA shows white blood cells. The patient was given Invanz 1 g IV. On recheck the patient was doing well. No abdominal or flank pain. I again discussed the case with Dr. Lazcano from Urology. He was informed of the urine findings. He felt comfortable with the current plan. The patient could be discharged from the ED. I discussed all results with the patient. I answered his questions. At time of discharge patient was doing well. He had no complaints pain. The patient will be given a prescription of Percocet. He will continue to take Flomax. He is instructed to take ibuprofen as well. He will follow up tomorrow with urology. He was given warnings prior to leaving. Differential Diagnosis: My differential includes but is not limited to kidney stone, pyelonephritis, urinary tract infection, appendicitis, cholecystitis, small-bowel obstruction, perforation, electrolyte abnormality, sugar abnormality, mesenteric ischemia, crystal meth use Patient has a noted large stone on the right. Dr. Lazcano is aware and is arranging close outpatient follow-up for treatment. The patient feels comfortable with this plan. - Data Points Laboratory Results: Laboratory Results 02/28/17 13:08 02/28/17 13:08 02/28/17 02/28/17 02/28/17 14:46 13:08 13:08 WBC 8.78 10^3/uL 10^3/uL (3.80-9.50) RBC 5.24 10^6/uL 10^6/uL (4.40-6.38) Hgb 16.8 g/dL g/dL (13.7-17.5) POC Hgb Hct 46.8 % % (40.0-51.0) POC Hct MCV 89.3 fL fL (81.5-99.8) MCH 32.1 pg pg (27.9-34.1) MCHC 35.9 g/dL g/dL (32.4-36.7) RDW 12.6 % % (11.5-15.2) Plt Count 243 10^3/uL 10^3/uL (150-400) MPV 10.8 fL fL (8.7-11.7) Neut % (Auto) 52.8 % % (39.3-74.2) Lymph % (Auto) 34.9 % % (15.0-45.0) [place] % (Auto) 7.6 % % (4.5-13.0) Eos % (Auto) 3.8 % % (0.6-7.6) Baso % (Auto) 0.7 % % (0.3-1.7) Nucleat RBC Rel Count 0.0 % % (0.0-0.2) Absolute Neuts (auto) 4.64 10^3/uL 10^3/uL (1.70-6.50) Absolute Lymphs (auto) 3.06 10^3/uL H 10^3/uL (1.00-3.00) Absolute Monos (auto) 0.67 10^3/uL 10^3/uL (0.30-0.80) Absolute Eos (auto) 0.33 10^3/uL 10^3/uL (0.03-0.40) Absolute Basos (auto) 0.06 10^3/uL 10^3/uL (0.02-0.10) Absolute Nucleated RBC 0.00 10^3/uL 10^3/uL (0-0.01) Immature Gran % 0.2 % % (0.0-1.1) Immature Gran # 0.02 10^3/uL 10^3/uL (0.00-0.10) POC Sodium Sodium 140 mEq/L mEq/L (134-144) POC Potassium Potassium 3.9 mEq/L mEq/L (3.5-5.2) POC Chloride Chloride 104 mEq/L mEq/L (97-110) Carbon Dioxide 23 mEq/l mEq/l (22-31) Anion Gap 13 mEq/L mEq/L (8-16) POC BUN BUN 13 mg/dL mg/dL (7-23) Creatinine 1.1 mg/dL mg/dL (0.7-1.3) POC Creatinine Estimated GFR > 60 Glucose 94 mg/dL mg/dL (70-100) POC Glucose Calcium 9.9 mg/dL mg/dL (8.5-10.4) Urine Color YELLOW Urine Appearance CLEAR Urine pH 9.0 H (5.0-7.5) Ur Specific [place] 1.021 (1.002-1.030) Urine Protein 2+ H (NEGATIVE) Urine Ketones NEGATIVE (NEGATIVE) Urine Blood 1+ H (NEGATIVE) Urine Nitrate NEGATIVE (NEGATIVE) Urine Bilirubin NEGATIVE (NEGATIVE) Urine Urobilinogen NEGATIVE EU EU (0.2-1.0) Ur Leukocyte Esterase 1+ H (NEGATIVE) Urine RBC 50-182 /hpf H /hpf (0-3) Urine WBC 15-25 /hpf H /hpf (0-3) Ur Epithelial Cells NONE SEEN /lpf /lpf (NONE-1+) Urine Mucus TRACE /lpf /lpf (NONE-1+) Ur Culture Indicated? INDICATED H (NI) Urine Glucose NEGATIVE (NEGATIVE) 02/28/17 13:06 WBC RBC Hgb POC Hgb 17.0 gm/dL gm/dL (14.5-17.3) Hct POC Hct 50 % % (42.8-50.6) MCV MCH MCHC RDW Plt Count MPV Neut % (Auto) Lymph % (Auto) [place] % (Auto) Eos % (Auto) Baso % (Auto) Nucleat RBC Rel Count Absolute Neuts (auto) Absolute Lymphs (auto) Absolute Monos (auto) Absolute Eos (auto) Absolute Basos (auto) Absolute Nucleated RBC Immature Gran % Immature Gran # POC Sodium 142 mEq/L mEq/L (134-144) Sodium POC Potassium 3.6 mEq/L mEq/L (3.3-5.0) Potassium POC Chloride 102 mEq/L mEq/L (96-108) Chloride Carbon Dioxide Anion Gap POC BUN 13 mg/dL mg/dL (7-23) BUN Creatinine POC Creatinine 1.1 mg/dL mg/dL (0.8-1.5) Estimated GFR Glucose POC Glucose 98 mg/dL mg/dL (70-100) Calcium Urine Color Urine Appearance Urine pH Ur Specific [place] Urine Protein Urine Ketones Urine Blood Urine Nitrate Urine Bilirubin Urine Urobilinogen Ur Leukocyte Esterase Urine RBC Urine WBC Ur Epithelial Cells Urine Mucus Ur Culture Indicated? Urine Glucose Medications Given: Discontinued Medications Sodium Chloride (Ns) 1,000 mls @ 0 mls/hr IV ONCE ONE PRN Reason: Wide Open Stop: 02/28/17 13:28 Last Admin: 02/28/17 13:40 Dose: 1,000 mls Ceftriaxone Sodium/Dextrose (Rocephin 1 Gm (Premix)) 50 mls @ 100 mls/hr IV EDNOW ONE PRN Reason: Protocol Stop: 02/28/17 15:52 Last Admin: 02/28/17 15:53 Dose: 50 mls Ketorolac Tromethamine (Toradol) 30 mg IVP EDNOW ONE Stop: 02/28/17 13:28 Last Admin: 02/28/17 13:40 Dose: 30 mg Point of Care Test Results: 02/28/17 13:06 POC Sodium 142 POC Potassium 3.6 POC Chloride 102 POC BUN 13 POC Creatinine 1.1 POC Glucose 98 Departure - Departure Disposition: [facility] In[facility] Acute Clinical Impression: Renal colic on right side, Methamphetamine use Urinary tract infection Qualifiers: Urinary tract infection type: acute cystitis Condition: Good Instructions: Renal Colic (ED), Kidney Stones (ED), Urinary Tract Infection in Men (ED) Referrals: Rebel Chappell MD [Medical Doctor] - 1 day without fail Liliya Lazcano MD [Medical Doctor] - As per Instructions Prescriptions: Ibuprofen 600 mg PO TID #12 tablet oxyCODONE/APAP 5/325 [Percocet 5/325 (*)] 1 - 2 tab PO Q4PRN PRN #11 tab PRN Reason: For Moderate To Severe Pain Tamsulosin HCl [Flomax] 0.4 mg PO DAILY #4 cap
[2017-02-28 13:48] LABS: ANION GAP 13 mEq/L (8-16); CALCIUM 9.9 mg/dL (8.5-10.4); CARBON DIOXIDE 23 mEq/l (22-31); CHLORIDE 104 mEq/L (97-110); CREATININE 1.1 mg/dL (0.7-1.3); GLOMERULAR FILTRATION RATE > 60; GLUCOSE 94 mg/dL (70-100); POTASSIUM 3.9 mEq/L (3.5-5.2); SODIUM 140 mEq/L (134-144)
[2017-02-28 14:55] LABS: COLOR YELLOW; LEUKOCYTE ESTERASE,URINE 1+ (NEGATIVE); NITRITE,URINE NEGATIVE (NEGATIVE)
[2017-02-28 14:58] LABS: MUCUS TRACE /lpf (NONE-1+); RBC,URINE 50-182 /hpf (0-3); WBC,URINE 15-25 /hpf (0-3)
[2017-02-28 17:09] VITALS: BP 110/83; PULSE 83; RESP 16; TEMP 97.7
== END 2017-02-28 17:08 | disposition home or self-care (01) ==
DX: N23 Unspecified renal colic (principal); N30.00 Acute cystitis without hematuria; F15.90 Other stimulant use, unspecified, uncomplicated; F17.200 Nicotine dependence, unspecified, uncomplicated; B96.89 Other specified bacterial agents as the cause of diseases classified elsewhere
CPT/HCPCS: 82947-QW; 96365; J0696; J1885

== ENCOUNTER 2017-08-10 09:28 | Emergency (ER) | payer MEDICAID ==
[2017-08-10 09:33] VITALS: TEMP 97.5
[2017-08-10] MEDS ORDERED: OXYCODONE/APAP 5/325 TAB PO ONE (09:51)
--- NOTE | 2017-08-10 09:55 | EDPHY ---
H & P Stated Complaint: upper back pain Time Seen by Provider: 08/10/17 09:37 HPI/ROS: CHIEF COMPLAINT: right subscapular pain HISTORY OF PRESENT ILLNESS: 42-year-old male history of degenerative disc disease to his cervical spine , history of methamphetamine abuse,, complaining of right subscapular pain for the past 3-4 days with development of torticollis like symptoms in the past 24 hours. No chest pain. No dyspnea. Pain in the back is intermittently reproducible with range of motion although he describes it is a consistent. Does not radiate. No peripheral paresthesia, weakness, numbness. No nausea or vomiting. No flu-like symptoms. Fever or chills. . REVIEW OF SYSTEMS: A ten point review of systems was performed and is negative with the exception of the items mentioned in the HPI PAST MEDICAL & SURGICAL HISTORY: Degenerative disc disease. SOCIAL HISTORY: history of methamphetamine use most recently used yesterday PHYSICAL EXAM (Prior to examination, patient consented to physical exam, hands were washed and my usual and customary physical exam procedures followed) 1) GENERAL: Well-developed, well-nourished, alert and oriented. Appears to be in no acute distress. 2) HEAD: Normocephalic, atraumatic 3) HEENT: Pupils equal, round, reactive to light bilaterally. Sclera anicteric. 4) NECK: Full range of motion, reproducible paraspinous cervical muscle pain with range of motion. No crepitus. No midline C or T-spine pain 5) LUNGS: Clear auscultation bilaterally, no wheezes, no rhonchi, no retractions. 6) HEART: Regular rate and rhythm, no murmur, no heave, no gallop. 7) ABDOMEN: No guarding, no rebound, no focal tenderness, negative McBurney's, negative Castaneda's, negative Rovsing's, negative peritoneal sign, 8) MUSCULOSKELETAL: Moving all extremities, no focal areas of tenderness, no obvious trauma. No peripheral edema or discoloration. 9) BACK: Minimal tenderness to palpation right subscapular region. No crepitus. No Midline thoracic spine pain. 10) SKIN: No rash, no petechiae. 11) Psychiatric: Patient is oriented X 3, there is no agitation. DIFFERENTIAL DIAGNOSIS: in no particular order including but not limited to aortic dissection, diskitis, epidural abscess, infectious endocarditis - Personal History Current Tetanus/Diphtheria Vaccine: Yes Current Tetanus Diphtheria and Acellular Pertussis (TDAP): Yes Tetanus Vaccine Date: < 10 YEARS - Medical/Surgical History Hx Asthma: No Hx Chronic Respiratory Disease: No Hx Diabetes: No Hx Cardiac Disease: No Hx Renal Disease: No Hx Cirrhosis: No Hx Alcoholism: No Hx HIV/AIDS: No Hx Splenectomy or Spleen Trauma: No Other PMH: AORTIC STENOSIS, DJD, Kidney stones, - Social History Smoking Status: Current every day smoker Constitutional: Initial Vital Signs Temperature (C) 36.4 C 08/10/17 09:31 Heart Rate 96 08/10/17 09:31 Respiratory Rate 20 08/10/17 09:31 Blood Pressure 123/85 H 08/10/17 09:31 O2 Sat (%) 100 08/10/17 09:31 O2 Delivery Mode Room Air Allergies/Adverse Reactions: No Known Allergies Allergy (Verified 08/10/17 09:30) Home Medications: Medication Instructions Recorded Cyclobenzaprine [Flexeril 10 MG 10 mg PO TID #15 tab 08/10/17 (RX)] Lidocaine 5% [Lidoderm 5% Patch 1 ea TD BID #30 patch 08/10/17 (*)] Medical Decision Making - Diagnostics Imaging Results: Imaging Impressions Chest X-Ray 08/10/17 09:51 Impression: 1. Clear lungs. No acute process. 2. Minimal levocurvature of the upper thoracic spine. Chest/Thorax CTA 08/10/17 10:38 Impression: 1. Nodular appearance of the aortic valve suspicious for vegetation. Recommend echo for further evaluation. 2. Linear filling defect in the right ventricle, possibly related to moderator band, artifact, or less likely clot. Attention is recommended on echo. 3. Borderline dilated ascending aorta measuring 4.0 cm without dissection. Findings discussed with Mynor Ku PA-C on August 10, 2017 at 1216 hours. Cervical Spine MRI 08/10/17 12:21 Impression: Multilevel degenerative disk and degenerative joint disease cervical spine. The most significant levels are at C4-C5 through C6-C7, with moderate to severe central spinal canal and severe bilateral neural foraminal narrowing, as detailed above by level. No evidence for diskitis, osteomyelitis , or epidural abscess. Results called and discussed with Aliza Ku PA-C, on August 10, 2017 at 1545. E:amm Thoracic Spine MRI 08/10/17 12:21 Impression: Early multilevel degenerative disk and degenerative joint disease in the upper thoracic spine, as detailed above by level. No evidence for epidural abscess. Results called and discussed with Mynor Ku PA-C on August 10, 2017 at 1553 hours. ED Course/Re-evaluation: 10:40 a.m.: Care of patient under supervision of secondary supervising physician Dr Patiño . Will obtain CT angiography evaluate possible intrathoracic etiology such as aortic dissection. If this is negative, given the patient's history of methamphetamine abuse, we discussed the high likelihood of obtaining MRI of the cervical and thoracic spine to evaluate for possible spinal infectious etiology. The patient's CT scan was negative for vasculopathy. There is noted however an aortic abnormality possibly consistent with vegetation. Given the patient's history of methamphetamine abuse this is a concern. Plan will also include obtaining echocardiography to evaluate for vegetative growth of aortic valve. Patient has been re-evaluated with serial examinations and his pain is controlled. 4:47 p.m.: Patient re-evaluated, he is comfortable. Discussed his imaging results including his echocardiography show no vegetation. He has been re- evaluated, he remains neurologically intact lower extremities and no complaints of low back pain. I recommended discontinue methamphetamine use. Doubt lumbar pathology, I do not think that lumbar imaging currently indicated. Plan will be discharge which he is comfortable with. Usual and customary discharge precautions and instructions provided. - Data Points Laboratory Results: Laboratory Results 08/10/17 10:43 08/10/17 10:43 08/10/17 08/10/17 08/10/17 10:43 10:43 10:41 WBC 6.27 10^3/uL 10^3/uL (3.80-9.50) RBC 5.06 10^6/uL 10^6/uL (4.40-6.38) Hgb 16.5 g/dL g/dL (13.7-17.5) POC Hgb 16.3 gm/dL gm/dL (13.7-17.5) Hct 46.4 % % (40.0-51.0) POC Hct 48 % % (40-51) MCV 91.7 fL fL (81.5-99.8) MCH 32.6 pg pg (27.9-34.1) MCHC 35.6 g/dL g/dL (32.4-36.7) RDW 13.2 % % (11.5-15.2) Plt Count 233 10^3/uL 10^3/uL (150-400) MPV 10.3 fL fL (8.7-11.7) Neut % (Auto) 54.7 % % (39.3-74.2) Lymph % (Auto) 32.2 % % (15.0-45.0) [place] % (Auto) 8.0 % % (4.5-13.0) Eos % (Auto) 4.1 % % (0.6-7.6) Baso % (Auto) 0.8 % % (0.3-1.7) Nucleat RBC Rel Count 0.0 % % (0.0-0.2) Absolute Neuts (auto) 3.43 10^3/uL 10^3/uL (1.70-6.50) Absolute Lymphs (auto) 2.02 10^3/uL 10^3/uL (1.00-3.00) Absolute Monos (auto) 0.50 10^3/uL 10^3/uL (0.30-0.80) Absolute Eos (auto) 0.26 10^3/uL 10^3/uL (0.03-0.40) Absolute Basos (auto) 0.05 10^3/uL 10^3/uL (0.02-0.10) Absolute Nucleated RBC 0.00 10^3/uL 10^3/uL (0-0.01) Immature Gran % 0.2 % % (0.0-1.1) Immature Gran # 0.01 10^3/uL 10^3/uL (0.00-0.10) POC Sodium 141 mEq/L mEq/L (134-144) Sodium 138 mEq/L mEq/L (134-144) POC Potassium 4.1 mEq/L mEq/L (3.3-5.0) Potassium 4.3 mEq/L mEq/L (3.5-5.2) POC Chloride 104 mEq/L mEq/L (97-110) Chloride 102 mEq/L mEq/L (97-110) Carbon Dioxide 26 mEq/l mEq/l (22-31) Anion Gap 10 mEq/L mEq/L (8-16) POC BUN 12 mg/dL mg/dL (7-23) BUN 12 mg/dL mg/dL (7-23) Creatinine 1.1 mg/dL mg/dL (0.7-1.3) POC Creatinine 1.1 mg/dL mg/dL (0.7-1.3) Estimated GFR > 60 Glucose 83 mg/dL mg/dL (70-100) POC Glucose 88 mg/dL mg/dL (70-100) Calcium 10.5 mg/dL H mg/dL (8.5-10.4) Medications Given: Discontinued Medications Oxycodone/Acetaminophen (Percocet 5/325) 1 tab PO EDNOW ONE Stop: 08/10/17 09:52 Last Admin: 08/10/17 10:03 Dose: 1 tab Point of Care Test Results: 08/10/17 10:41 POC Sodium 141 POC Potassium 4.1 POC Chloride 104 POC BUN 12 POC Creatinine 1.1 POC Glucose 88 Departure - Departure Disposition: Home, Routine, Self-Care Clinical Impression: Thoracic back pain Qualifiers: Chronicity: acute Back pain laterality: right Qualified Code(s): M54.6 - Pain in thoracic spine Condition: Good Instructions: Back Pain (ED) Additional Instructions: Please stop using methamphetamine. Seek medical attention if you develop new or worsening pain, if you develop bladder or bowel dysfunction, numbness around your perineum, foot drop, or any other symptoms that concern you. Referrals: [facility],. [Clinic] - 2-3 days, call for appt. Stand Alone Forms: Work Excuse Prescriptions: Cyclobenzaprine [Flexeril 10 MG (RX)] 10 mg PO TID #15 tab Lidocaine 5% [Lidoderm 5% Patch (*)] 1 ea TD BID #30 patch
[2017-08-10] MEDS ORDERED: IOPAMIDOL (ISOVUE 370) 100 ML BTL IV ONE (10:46)
[2017-08-10 10:54] LABS: % IMMATURE GRANULYOCYTES 0.2 % (0.0-1.1); ABSOLUTE IMMATURE GRANULOCYTES 0.01 10^3/uL (0.00-0.10); ADD DIFF? NO; ADD MORPH? NO; ADD SCAN? NO; ATYPICAL LYMPHOCYTE FLAG 30 (0-99); FRAGMENT RBC FLAG 0 (0-99); HEMATOCRIT 46.4 % (40.0-51.0); HEMOGLOBIN 16.5 g/dL (13.7-17.5); LEFT SHIFT FLG 0 (0-99); LIPEMIA HEMOLYSIS FLAG 90 (0-99); MEAN CELL HEMOGLOBIN 32.6 pg (27.9-34.1); MEAN CELL HEMOGLOBIN CONCENTR. 35.6 g/dL (32.4-36.7); MEAN CELL VOLUME 91.7 fL (81.5-99.8); MEAN PLATELET VOLUME 10.3 fL (8.7-11.7); PLATELET CLUMPS FLAG 0 (0-99); PLATELET COUNT 233 10^3/uL (150-400); RED BLOOD CELL COUNT 5.06 10^6/uL (4.40-6.38); RED CELL DISTRIBUTION WIDTH 13.2 % (11.5-15.2)
[2017-08-10 11:20] LABS: ANION GAP 10 mEq/L (8-16); CALCIUM 10.5 mg/dL (8.5-10.4); CARBON DIOXIDE 26 mEq/l (22-31); CHLORIDE 102 mEq/L (97-110); CREATININE 1.1 mg/dL (0.7-1.3); GLOMERULAR FILTRATION RATE > 60; GLUCOSE 83 mg/dL (70-100); POTASSIUM 4.3 mEq/L (3.5-5.2); SODIUM 138 mEq/L (134-144)
[2017-08-10] MEDS ORDERED: GADOBUTROL 10 ML VIAL IVP ONE (13:15)
[2017-08-10 16:12] VITALS: RESP 16
--- NOTE | 2017-08-10 16:43 | ECHO ---
[email or web address] [address] [address] Main: [phone] Fax: Transthoracic Echocardiogram Name: ROXY ROB MR#: [id number] Study Date: 08/10/2017 Study Time: 03:39 PM Date of : 1975 Age: 42 year(s) Height: 177.8 cm (70 in.) Weight: 63.5 kg (140 lb.) BSA: 1.79 m2 Gender: Male Examination: Echo Indication: Evaluate possible aortic valve vegetation Image Quality: Contrast: Requested by: Yocasta Ku BP: / Heart Rate: Rhythm: Indication: Evaluate possible aortic valve vegetation Procedure Staff Asset Protection Greeter: Francisca Rivera Reading Physician: Griffin Sanchez Requesting Provider: Conclusions: Normal size left ventricle. EF estimate is 45-50%. There is mild thickening of the mitral valve leaflets. Mild mitral valve regurgitation is present. Bicuspid aortic valve. Mild aortic sclerosis. AV max PG is 36mmHG. AV mean PG is 21mmHG. Mild tricuspid regurgitation is present. No significant change from echo of 02/06/16. Measurements: Chambers Valvular Assessment AV/MV Valvular Assessment TV/PV Normal Normal Normal Name Value Range Name Value Range Name Value Range Ao Mona (MM): 3.5 cm (2.2 cm-3.7 AV Vmax: 2.26 m/s (1 m/s-1.7 TR Vmax: 2.66 mm/s ( - ) cm) m/s) TR PGmax: 28 mmHg ( - ) IVSd (2D): 1.0 cm (0.6 cm-1.1 AV maxP mmHg ( - ) syst. PAP: 33 mmHg ( - ) cm) AV meanP mmHg ( - ) LVDd (2D): 4.4 cm (4.2 cm-5.9 LVOT Vmax: 0.68 m/s (0.7 m/s-1.1 cm) m/s) LVDs (2D): 3.2 cm (2.1 cm-4 FRANK (Vmax): 1.3 cm2 ( - ) cm) FRANK (VTI): 1.2 cm ( - ) LVPWd (2D): 0.9 cm (0.6 cm-1 MV E Vmax: 0.37 m/s ( - ) cm) MV A Vmax: 0.45 m/s ( - ) LVOTd 2.3 cm 2.3 cm mm MV E/A: 0.82 ( - ) LVEF (MOD4): 45 % (>=55 %) Continued Measurements: Chambers Valvular Assessment AV/MV Valvular Assessment TV/PV Name Value Name Value Name Value Patient: ROXY ROB Study Date: 08/10/2017 Page 1 of 2 03:39 PM LADs Lon.2 cm MV E/E' Septal: 5.30 CVP (est.): 5 mmHg LA Area: 6.8 cm2 MV E/E' Lateral: 3.70 Additional Vessels Name Value Ao Ascendin.6 cm Findings: Left Ventricle: Normal size left ventricle. EF estimate is 45-50%. Low normal left ventricular systolic function. EF is 45 %. Right Ventricle: Normal size right ventricle. Left Atrium: The left atrium is normal in size. Right Atrium: The right atrium is normal in size. Mitral Valve: There is mild thickening of the mitral valve leaflets. Mild mitral valve regurgitation is present. Aortic Valve: Bicuspid aortic valve. Mild aortic sclerosis. AV max PG is 36mmHG. AV mean PG is 21mmHG. Trivial aortic valve regurgitation. The aortic valeve opens widely. Tricuspid Valve: The tricuspid valve appears normal. Mild tricuspid regurgitation is present. Pulmonic Valve: The pulmonic valve is normal in appearance. Pericardium: No pericardial effusion. (No Signature Object) Patient: ROXY ROB Study Date: 08/10/2017 Page 2 of 2 03:39 PM [id number]
[2017-08-10 17:02] VITALS: BP 129/91; PULSE 88; O2SAT 95
== END 2017-08-10 17:05 | disposition home or self-care (01) ==
DX: M54.6 Pain in thoracic spine (principal); F17.200 Nicotine dependence, unspecified, uncomplicated
CPT/HCPCS: 82947-QW; A9585; Q9967

== ENCOUNTER 2017-10-10 11:33 | Emergency (ER) | payer MEDICAID ==
[2017-10-10] MEDS ORDERED: ASPIRIN 325 MG TAB PO ONE (13:38)
--- NOTE | 2017-10-10 14:14 | EDPHY ---
HPI/HX/ROS/PE/MDM Narrative: CHIEF COMPLAINT: Global weakness HISTORY OF PRESENT ILLNESS: The patient is a 42 y/o male arriving with his family with a history of aortic stenosis complaining of global weakness onset today. Yesterday his "head felt cloudy," which continued today. While at work this morning he says his "legs felt like they would collapse and both arms and legs became numb." He was breathing heavily and had associated numbness in his lips and face and then his chest began to feel heavy. He says it felt "like a really bad panic attack, but I don't have anything to be anxious about." He had an echocardiogram that "looked fine" 1.5 years ago and was advised to complete a stress test, but did not follow through with this. He does not use medication or any other management for his aortic stenosis. No personal history of hypertension, diabetes, hypertension, cardiac surgeries, blood clots, or stroke. He uses crystal methamphetamine, but has not used it for a few days. No recent illness or trauma. He says, "now I feel fine. 100 times better." No fever, chills, chest pain, shortness of breath, palpitations, vomiting, diarrhea, urinary complaints, headache, lightheadedness. REVIEW OF SYSTEMS: Aside from elements discussed in the HPI, a comprehensive 10-point review of systems was reviewed and is negative. PAST MEDICAL HISTORY: 1. Aortic stenosis- last echo 1.5 year ago "looked fine" and was advised to do a treadmill test that he did not follow through with 2. Kidney stones 3. Chronic back pain/degenerative disc disease SOCIAL HISTORY: Family at bedside. History of meth use, hasn't used for the last few days. Cigarette smoker. 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 VITAL SIGNS: Reviewed by me GENERAL: Well-developed, well-nourished, resting comfortably in no respiratory distress. HEENT: Atraumatic. Eyes: No icterus, no injection. Mouth: moist mucous membranes. No erythema or lesions. Neck: supple with no adenopathy. LUNGS: Clear to auscultation bilaterally, no wheezes, rhonchi or rales. CARDIAC: Regular rate and rhythm, no rubs, crescendo systolic murmur, split S2, no gallops. ABDOMEN: Soft, nontender, nondistended, bowel sounds normal. BACK: No CVA tenderness. EXTREMITIES: No trauma. No edema. Range of motion is normal throughout. NEURO: Alert and oriented, cranial nerves are intact throughout, normal motor, normal sensation. SKIN: Warm and dry, no rash. PSYCHIATRIC: Normal mentation, no agitation. Portions of this note were transcribed by a biomedical engineering supervisor. I personally performed a history, physical exam, medical decision making, and confirmed accuracy of information the transcribed note. ED Course: This is a 42 y/o male with a history of aortic stenosis and meth use presents for evaluation of global weakness and diffuse numbness onset this morning while sweeping at work. He has a crescendo systolic murmur and S2 split on exam. Plan for IV, labs, EKG, chest x-ray. 324mg PO aspirin administered. The 12 lead EKG was interpreted by myself. Sinus rhythm rate 83. Baseline artifact. See hard copy and/or "tracemaster" electronic copy for interpretation. Laboratory evaluation is normal. On review of the patient's records, he actually had echocardiogram done in August of 2017 demonstrating mild aortic stenosis. Currently the patient is asymptomatic. I feel the patient is safe to be discharged home. There is no clear indication of severe aortic stenosis causing cardiovascular compromise. Patient reports feeling that his symptoms may be related to anxiety. He has been 3 days without methamphetamines and is wondering if he is withdrawing from methamphetamine. Troponin is negative. EKG shows no ischemic changes. Vital signs have been stable. Neurologically intact. Patient was instructed to follow up at [facility] as soon as possible. MDM: Differential diagnosis of the patient's weakness was considered including but not limited to electrolyte abnormality, anemia, cardiac ischemia, aortic stenosis, spinal cord abnormality, and infectious causes. - Data Points Imaging Results: Imaging Impressions Chest X-Ray 10/10/17 13:39 Impression: No acute conventional radiographic abnormality, or significant change from August. Laboratory Results: Laboratory Results 10/10/17 13:52 10/10/17 13:52 10/10/17 10/10/17 13:52 13:52 WBC 11.00 10^3/uL H 10^3/uL (3.80-9.50) RBC 5.21 10^6/uL 10^6/uL (4.40-6.38) Hgb 17.3 g/dL g/dL (13.7-17.5) Hct 47.5 % % (40.0-51.0) MCV 91.2 fL fL (81.5-99.8) MCH 33.2 pg pg (27.9-34.1) MCHC 36.4 g/dL g/dL (32.4-36.7) RDW 12.4 % % (11.5-15.2) Plt Count 263 10^3/uL 10^3/uL (150-400) MPV 10.4 fL fL (8.7-11.7) Neut % (Auto) 70.5 % % (39.3-74.2) Lymph % (Auto) 18.7 % % (15.0-45.0) [place] % (Auto) 6.3 % % (4.5-13.0) Eos % (Auto) 3.5 % % (0.6-7.6) Baso % (Auto) 0.6 % % (0.3-1.7) Nucleat RBC Rel Count 0.0 % % (0.0-0.2) Absolute Neuts (auto) 7.76 10^3/uL H 10^3/uL (1.70-6.50) Absolute Lymphs (auto) 2.06 10^3/uL 10^3/uL (1.00-3.00) Absolute Monos (auto) 0.69 10^3/uL 10^3/uL (0.30-0.80) Absolute Eos (auto) 0.38 10^3/uL 10^3/uL (0.03-0.40) Absolute Basos (auto) 0.07 10^3/uL 10^3/uL (0.02-0.10) Absolute Nucleated RBC 0.00 10^3/uL 10^3/uL (0-0.01) Immature Gran % 0.4 % % (0.0-1.1) Immature Gran # 0.04 10^3/uL 10^3/uL (0.00-0.10) Sodium 143 mEq/L mEq/L (134-144) Potassium 3.8 mEq/L mEq/L (3.5-5.2) Chloride 103 mEq/L mEq/L (97-110) Carbon Dioxide 27 mEq/l mEq/l (22-31) Anion Gap 13 mEq/L mEq/L (8-16) BUN 14 mg/dL mg/dL (7-23) Creatinine 1.0 mg/dL mg/dL (0.7-1.3) Estimated GFR > 60 Glucose 101 mg/dL H mg/dL (70-100) Calcium 9.9 mg/dL mg/dL (8.5-10.4) Troponin I < 0.012 ng/mL ng/mL (0.000-0.034) Medications Given: Discontinued Medications Aspirin (Aspirin) 325 mg PO EDNOW ONE Stop: 10/10/17 13:39 Last Admin: 10/10/17 15:37 Dose: Not Given Aspirin (Aspirin) 324 mg PO EDNOW ONE Stop: 10/10/17 15:17 Last Admin: 10/10/17 15:37 Dose: Not Given General Initial Vital Signs: Initial Vital Signs Temperature (C) 36.8 C 10/10/17 11:35 Heart Rate 84 10/10/17 11:35 Respiratory Rate 18 10/10/17 11:35 Blood Pressure 121/83 H 10/10/17 11:35 O2 Sat (%) 98 10/10/17 11:35 O2 Delivery Mode Room Air Allergies/Adverse Reactions: No Known Allergies Allergy (Verified 10/10/17 11:40) Home Medications: Medication Instructions Recorded NK [No Known Home Meds] 10/10/17 Departure - Departure Disposition: Home, Routine, Self-Care Clinical Impression: Anxiety, Weakness Condition: Good Instructions: Methamphetamine Abuse (ED), Weakness (ED), Anxiety (ED) Additional Instructions: Please follow up with [facility] as soon as possible for your stress echocardiogram. Please drink plenty of fluid, get plenty of rest, avoid illicit drugs. Referrals: NONE *PRIMARY CARE P,. [Primary Care Provider] - As per Instructions Report Scribed for: Genevieve Loja Report Scribed by: Gabriela Stout Date of Report: 10/10/17 Time of Report: 14:14
--- NOTE | 2017-10-10 14:28 | CPEKG ---
Heart Rate: 83 RR Interval: 723 P-R Interval: 172 QRSD Interval: 100 QT Interval: 420 QTC Interval: 494 P [place]: 0 QRS [place]: 64 T Wave [place]: 59 EKG Severity - BORDERLINE ECG - EKG Impression: SINUS RHYTHM EKG Impression: BORDERLINE PROLONGED QT INTERVAL Electronically Signed By: Genevieve Loja 10-Oct-2017 17:57:21
[2017-10-10 14:48] LABS: % IMMATURE GRANULYOCYTES 0.4 % (0.0-1.1); ABSOLUTE IMMATURE GRANULOCYTES 0.04 10^3/uL (0.00-0.10); ADD DIFF? NO; ADD MORPH? NO; ADD SCAN? NO; ATYPICAL LYMPHOCYTE FLAG 10 (0-99); FRAGMENT RBC FLAG 0 (0-99); HEMATOCRIT 47.5 % (40.0-51.0); HEMOGLOBIN 17.3 g/dL (13.7-17.5); LEFT SHIFT FLG 0 (0-99); LIPEMIA HEMOLYSIS FLAG 90 (0-99); MEAN CELL HEMOGLOBIN 33.2 pg (27.9-34.1); MEAN CELL HEMOGLOBIN CONCENTR. 36.4 g/dL (32.4-36.7); MEAN CELL VOLUME 91.2 fL (81.5-99.8); MEAN PLATELET VOLUME 10.4 fL (8.7-11.7); PLATELET CLUMPS FLAG 10 (0-99); PLATELET COUNT 263 10^3/uL (150-400); RED BLOOD CELL COUNT 5.21 10^6/uL (4.40-6.38); RED CELL DISTRIBUTION WIDTH 12.4 % (11.5-15.2)
[2017-10-10 14:56] LABS: ANION GAP 13 mEq/L (8-16); CALCIUM 9.9 mg/dL (8.5-10.4); CARBON DIOXIDE 27 mEq/l (22-31); CHLORIDE 103 mEq/L (97-110); GLOMERULAR FILTRATION RATE > 60; GLUCOSE 101 mg/dL (70-100); POTASSIUM 3.8 mEq/L (3.5-5.2); SODIUM 143 mEq/L (134-144)
[2017-10-10] MEDS ORDERED: ASPIRIN 81 MG CHEWABLE TAB ONE (15:06)
[2017-10-10 15:08] LABS: TROPONIN I < 0.012 ng/mL (0.000-0.034)
[2017-10-10] MEDS ORDERED: ASPIRIN 81 MG CHEWABLE TAB PO ONE (15:16)
[2017-10-10 15:47] VITALS: RESP 16
[2017-10-10 16:35] VITALS: BP 122/89; PULSE 75; TEMP 98.1; O2SAT 98
== END 2017-10-10 16:35 | disposition home or self-care (01) ==
DX: R53.1 Weakness (principal); F41.9 Anxiety disorder, unspecified; F17.210 Nicotine dependence, cigarettes, uncomplicated